=== PATIENT | female | born 1980 | race Caucasian/White ===

== ENCOUNTER 2016-08-20 13:20 | Emergency (ER) | payer MEDICARE, MEDICAID ==
--- NOTE | 2016-08-24 18:43 | ER ---
ADMIT: 08/20/2016 RM/LOC: ER [facility] MR#: [id number] [address] [address] BALDWIN, PAUL [place] [address] Emergency Room Report SEX: F AGE: 35 : 1980 DATE: 08/20/2016 HISTORY OF PRESENT ILLNESS: A 35-year-old female with abdominal pain for couple of days. She states it feels like an ulcer coming back up. She denies any fever or chills. She did have some nausea. No vomiting. No diarrhea. REVIEW OF SYSTEMS: Positive for anxiety. She stated that she had contacted Dr. Jesse Murillo in [place]. They told her that if she needed to be admitted she needed to go to [facility], but she ended up coming in here for evaluation. PAST MEDICAL HISTORY: Ulcers, PTSD, migraine, seizure, C4-C5 surgery, bariatric surgery that has caused some lot of secondary problems. She has had an appendectomy, cholecystectomy, left thyroidectomy, and hysterectomy. MEDICATIONS: Multiple. ALLERGIES: SHE ALSO HAS MULTIPLE ALLERGIES INCLUDING SULFA, MORPHINE, NORCO, CODEINE, AND PENICILLIN. PHYSICAL EXAMINATION: VITAL SIGNS: Upon examination, blood pressure 115/61 with a heart rate of 74, respirations 18, temp is 97.6, O2 saturation 98% mildly anxious. HEENT: Normal inspection. NECK: Supple. RESPIRATIONS: No distress. Breath sounds are normal. CVS: Regular rate and rhythm. ABDOMEN: Tenderness, but it is mainly throughout the abdomen. BACK: No CVA tenderness. SKIN: Good color and turgor. EXTREMITIES: Well perfused. LABORATORY DATA: Hemoglobin 12.9. Chemistry within normal limits. INR 1.04. Abdomen ultrasound read by is within normal limits, no free fluids seen. She was given a shot of Toradol and an IV of Protonix with normal ADMIT: 08/20/2016 RM/LOC: ER [facility] MR#: [id number] [facility] [address] [address] [place] [address] Emergency Room Report SEX: F AGE: 35 : 1980 saline. I did contact Dr. Jesse Murillo at 1535 hours office in [place]. I spoke with his nurse. Apparently, this patient has missed several of the appointments that she had in [place], so nurse was not too accommodating when I did call her, but she says the patient has an appointment on Tuesday and what she told her was not to come to the hospital in [place] was that if she needed to be admitted, she needed to drive herself over to the hospital in [facility] in [place]. I did go ahead and give her prescription for Zofran that will help her little bit for the nausea, but she is in charge of being prompt and compliant with her appointment on Tuesday at 10:[address] [facility] in [place]. CLINICAL IMPRESSION: Abdominal pain, not otherwise specified. KUSHAL Alcaraz / iBll Dee MD / modl JOB #: [id number] CC: Bill Dee MD, Attending Physician Arnol Lee MD, Family Physician
== END 2016-08-20 17:20 | disposition home or self-care (01) ==
LOC: ER 13:20
DX: R10.9 Unspecified abdominal pain (principal); G43.909 Migraine, unspecified, not intractable, without status migrainosus; R56.9 Unspecified convulsions; Z88.2 Allergy status to sulfonamides; Z88.5 Allergy status to narcotic agent; Z88.8 Allergy status to other drugs, medicaments and biological substances; Z98.890 Other specified postprocedural states; Z90.710 Acquired absence of both cervix and uterus

== ENCOUNTER → 2016-08-20 | Outpatient (CLI) | payer MEDICARE, MEDICAID ==
[~2016-08-20] MED LIST: ACARBOSE PO; ATARAX DPS50 MG PO; CARAFATE1 GM PO; CITRACAL + D E1 EACH PO; DECARA50000 UNIT PO; DELTASONE DPS10 MG PO; DUONEB DPS3 ML IH; ELAVIL-DPS25 MG PO; FLEXERIL-DPS10 MG PO; KLONOPIN DPS0.5 MG PO; LEVAQUIN DPS750 MG PO; LYRICA150 MG PO; PAMELOR DPS50 MG PO; PRILOSEC DPS20 MG PO; SYNTHROID175 MCG PO; THERA1 EACH PO; TOPIRAMATE100 MG PO; VALIUM-DPS5 MG PO; VITAMIN B-122500 MCG PO; VITAMIN D1000 UNI1 PO; ZANAFLEX4 MG PO
== END | disposition home or self-care (01) ==
LOC: PTH.S 09:00
DX: E55.9 Vitamin D deficiency, unspecified (principal); K90.9 Intestinal malabsorption, unspecified; E66.01 Morbid (severe) obesity due to excess calories; Z98.84 Bariatric surgery status

== ENCOUNTER 2016-11-11 13:00 | Emergency (ER) | payer MEDICARE, MEDICAID ==
--- NOTE | 2016-11-16 23:43 | ER ---
ADMIT: 11/11/2016 RM/LOC: ER [facility] MR#: [id number] [address] [address] JHON DIOPLI Roscoe Phillips [facility] [place] [address] Emergency Room Report SEX: F AGE: 36 : 1980 DATE: 11/11/2016 TIME: 1300 hours. Please refer to my T-sheet for complete H and P. Briefly, patient is a 36-year-old, who comes in with kind of vague complaints of just not feeling well, high blood sugars, has been going on and off. She does not have diabetes but she said she took her sugar, it was 280 and then took it again, it was 287. She has not had any blood work or anything else. No chest pain. No other complaints. Comes in for evaluation. PHYSICAL EXAMINATION: VITAL SIGNS: Blood pressure 118/61, pulse 110, respirations 16, temp 98.2, sat 98%. GENERAL: No acute distress. HEENT: Grossly normal. LUNGS: Clear. HEART: Slightly tachycardic but normal otherwise. ABDOMEN: Soft. SKIN: No rash. EMERGENCY DEPARTMENT COURSE: CBC normal. Chemistries normal except for a TSH of less than 0.005, I talked to Dr. Kuhn who is on-call for Dr. Lee. We are going to hold her thyroid through the weekend, have them follow up Tuesday and re-group. ASSESSMENT: Hyperthyroid, over replaced. PLAN: Stop all thyroid at this time through the weekend. Follow up with Dr. Lee next week. Return if worse. Taqueria Hernández MD/ ananya JOB #: [id number] CC: Taqueria Hernández MD, Attending Physician Arnol Lee MD, Family Physician
== END 2016-11-11 15:11 | disposition home or self-care (01) ==
LOC: ER 13:00
DX: E05.90 Thyrotoxicosis, unspecified without thyrotoxic crisis or storm (principal); K21.9 Gastro-esophageal reflux disease without esophagitis; F41.9 Anxiety disorder, unspecified; Z90.710 Acquired absence of both cervix and uterus

== ENCOUNTER 2016-12-05 14:52 | Emergency (ER) | payer MEDICARE, MEDICAID ==
--- NOTE | 2016-12-23 16:41 | ER ---
ADMIT: 12/05/2016 RM/LOC: ER [facility] MR#: [id number] ACC#: [id number] [address] [address] PAUL [address]OP [address] [place] [address] Emergency Room Report SEX: F AGE: 36 : 1980 DATE: 12/05/2016 PRIMARY CARE PHYSICIAN: Arnol Lee MD CHIEF COMPLAINT: Today, bucked off a horse. HISTORY OF PRESENT ILLNESS: This is a 36-year-old white female, who presents to the ER by private vehicle. After she was bucked off a horse prior to arrival. States she was riding when the horse was startled, bucked her off, primarily landed on her back and right shoulder. She did not lose consciousness. She was ambulatory at the scene. Primarily complains of neck, back, right shoulder, and chest pain. Denies any difficulty breathing. She does have some lateral right chest wall pain. No numbness or tingling in her extremities, PAST MEDICAL HISTORY: Thyroidectomy; C3, C4 plate with screws, right shoulder rotator cuff repair; COPD. PAST SURGICAL HISTORY: Includes appendectomy, cholecystectomy, tubal ligation gastric bypass x2, right oophorectomy, left knee scope and right knee scope. SOCIAL HISTORY: She is a nonsmoker. Does admit to occasional alcohol use. No illicit drug use. MEDICATIONS: See attached med list for complete detail. She is not on any blood thinners. ALLERGIES: PENICILLIN, NORCO, CODEINE, DARVOCET, MORPHINE, PSEUDOEPHEDRINE. COURSE IN EMERGENCY DEPARTMENT: Due to the mechanism of injury, the patient was paged out as a partial trauma. GENERAL: Initial exam shows a patent airway. She is alert and oriented. No circulatory compromises. HEAD: Normocephalic and atraumatic. NECK: She is placed in a C-collar. Initially complaining of midline tenderness. HEENT: Tympanic membranes are pearly duncan bilaterally. Nose, faint rhinorrhea. No mucosal edema. Throat, thin airway. No tonsillar exudates. No dental injuries. CHEST: She has tenderness to palpation over the right lateral chest. No crepitus on exam. LUNGS: Diminished to auscultation with wheezes in the bases. HEART: Regular rate and rhythm. No murmurs, gallops, or rubs. ABDOMEN: Soft and nontender. No guarding or rebound. Hips are stable to the pelvis rock. She is able to ambulate into the Department. EXTREMITIES: She has tenderness to palpation about the right collar bone, greater tuberosity of the humerus extending distally. She has a significant abrasion to the right posterior upper arm. No other injuries noted in the ADMIT: 12/05/2016 RM/LOC: ER [facility] MR#: [id number] [address] [place] [address] PAUL DIOP [address] [place] [address] Emergency Room Report SEX: F AGE: 36 : 1980 lower legs. NEURO: She is alert and oriented, cooperative to exam. Pupils are equal and reactive. Extraocular muscles intact. Sensation is intact in the upper and lower extremities compared bilaterally. She does move all 4 extremities as above, able to ambulate. I did give her 50 mg of Ultram for pain control today as she has multiple allergies to narcotic pain medications. CT of head and C-spine was completed, negative for any acute fractures or hemorrhages. Routine right shoulder series shows no fracture or dislocation. Chest x-ray shows no effusions, no obvious rib fractures. Cardiac silhouette is stable. IMPRESSION: 1. Cervical spine sprain. 2. Right shoulder contusion. 3. Left chest contusion. 4. Right upper posterior arm abrasion. DISPOSITION: The patient was discharged home. I did write her a script for Ultram 50 mg tabs one to two tabs every 4 to 6 hours as needed for pain #20. Apply ice to the affected areas three times a day as needed. I did recommend to continue to stay active. I told her that she can expect to be even more so tomorrow. She is to follow up with her primary care provider if not improving. Questions sought and answered to best of my ability and the patient's satisfaction. Discharged in stable condition. KUSHAL Rosario / Bill Dee MD / ananya JOB #: [id number] CC: Elkin Hilton MD, Attending Physician Arnol Lee MD, Family Physician
== END 2016-12-05 16:20 | disposition home or self-care (01) ==
LOC: ER 14:52
DX: S13.4XXA Sprain of ligaments of cervical spine, initial encounter (principal); S40.011A Contusion of right shoulder, initial encounter; S20.212A Contusion of left front wall of thorax, initial encounter; S40.811A Abrasion of right upper arm, initial encounter; J44.9 Chronic obstructive pulmonary disease, unspecified; Z98.890 Other specified postprocedural states; Z88.0 Allergy status to penicillin; Z88.5 Allergy status to narcotic agent; Z88.8 Allergy status to other drugs, medicaments and biological substances; Y93.52 Activity, horseback riding

== ENCOUNTER → 2016-12-08 | Outpatient (CLI) | payer MEDICARE, MEDICAID | END | disposition home or self-care (01) | LOC: RAD.S 10:30 | DX: S32.029A Unspecified fracture of second lumbar vertebra, initial encounter for closed fracture (principal); M47.896 Other spondylosis, lumbar region; X58.XXXA Exposure to other specified factors, initial encounter ==

== ENCOUNTER 2016-12-10 21:21 | Emergency (ER) | payer MEDICARE, MEDICAID ==
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
== END 2016-12-10 23:25 | disposition home or self-care (01) ==
LOC: ER 21:21
DX: R10.13 Epigastric pain (principal); F17.210 Nicotine dependence, cigarettes, uncomplicated; Z90.49 Acquired absence of other specified parts of digestive tract; Z90.89 Acquired absence of other organs; Z98.890 Other specified postprocedural states; Z87.81 Personal history of (healed) traumatic fracture; Z88.0 Allergy status to penicillin; Z88.5 Allergy status to narcotic agent; Z88.8 Allergy status to other drugs, medicaments and biological substances; Z79.899 Other long term (current) drug therapy

== ENCOUNTER 2016-12-11 13:35 | Emergency (ER) | payer MEDICARE, MEDICAID ==
--- NOTE | 2016-12-11 18:11 | ER ---
ADMIT: 12/11/2016 RM/LOC: ER [facility] MR#: [id number] [address] [address] JHON BALDWINLI Roscoe Phillips S [facility] [place] [address] Emergency Room Report SEX: F AGE: 36 : 1980 DATE: 12/11/2016 ADDENDUM: See T-sheet for complete H and P. A 36-year-old female comes in with some epigastric abdominal pain. She was actually seen for this approximately 12 hours ago, had a workup at that time, normal blood work. She did receive a GI cocktail and pain was completely resolved at that time. She came back as her pain came back several hours ago. On examination, her belly is soft. She does have some mild epigastric tenderness. Bowel sounds are normal. She was given another GI cocktail here and symptoms completely resolved. She does have a history of gastric ulcers and has a history of gastric bypass also. She is already taking Carafate and omeprazole. As she had complete resolution of her symptoms while here, I do believe she has some gastric irritation, possibly another ulcer. She is instructed to use Pepcid and Maalox. She is to continue the omeprazole and Carafate, avoid any naproxen or NSAIDs and follow up with her regular physician this week. DIAGNOSIS: Epigastric pain. Dennis Ryder MD/ ananya JOB #: [id number] CC: Dennis Ryder MD, Attending Physician
== END 2016-12-11 14:40 | disposition home or self-care (01) ==
LOC: ER 13:35
DX: R10.13 Epigastric pain (principal); F17.200 Nicotine dependence, unspecified, uncomplicated; Z88.0 Allergy status to penicillin; Z88.5 Allergy status to narcotic agent; Z88.6 Allergy status to analgesic agent; Z88.8 Allergy status to other drugs, medicaments and biological substances; Z98.84 Bariatric surgery status; Z90.721 Acquired absence of ovaries, unilateral; Z90.89 Acquired absence of other organs